=== PATIENT | female | born 1990 | race African-American/Black ===

== ENCOUNTER 2018-04-02 10:42 | Inpatient (IN) ==
[2018-04-01 11:31] LABS: Apearance,Urine Slightly Hazy (Clear); Bacteria,Urine Occasional /HPF (Few); Bilirubin,Urine Negative (Negative); Blood, Urine Negative (Negative); Glucose,Urine (UA) Negative (Negative); Ketones,Urine 80 mg/dL (Negative); Mucus,Urine Many /LPF (Occasional); Nitrite,Urine Negative (Negative); Protein,Urine 30 MG/DL; RBC,Urine 3 /HPF (0-4); Squamous Epithelial Cell,Urine Few /HPF (0-10); Urine Color Yellow (Yellow); Urine Specific Gravity 1.028 (1.001-1.035); Urine Urobilinogen < 2.0 EU/DL (0.2-1.0); WBC,Urine 1 /HPF (0-6)
[2018-04-01] MEDS: LACTATED RINGERS 1,000 ML IV SCH ×2 (11:39→21:03)
[2018-04-01] MEDS: ONDANSETRON 4 MG/2 ML VIAL IV SCH ×3 (11:39→23:29)
[2018-04-01 12:18] LABS: Hematocrit 36.3 VOL% (35.7-47.0); Mean Corpuscular HGB Conc 33.1 GM/DL (32-36); Mean Corpuscular Hemoglobin 24 PG (27-34); Mean Corpuscular Volume 71.3 FL (87-102); Red Blood Count 5.09 MC/CUMM (3.8-5.5); White Blood Count 11.8 T/CUMM (4-12)
[2018-04-01 12:19] LABS: Basophils # 0.1 10*3/uL (0.0-0.2); Basophils % 0.8 % (0.0-0.8); Eosinophils % 0.1 % (0.00-10.9); Immature Granulocytes % 0.3 %; Immature Granulocytes Absolute 0.03 #; Lymphocytes # 2.1 10*3/uL (1.4-4.0); Lymphocytes % 17.4 % (21.3-54.2); Mean Platelet Volume 10.7 FL (9.6-12.0); Monocytes # 0.6 10*3/uL (0.11-0.8); Monocytes % 5.2 % (1.7-12.7); Neutrophils % 76.2 % (38.7-73.9); Platelet Count 292 T/CUMM (130-400); Red Cell Distribution Width 16.6 % (9.3-17.3)
[2018-04-01 12:41] LABS: Albumin 3.8 G/DL (3.4-5.0); Bilirubin,Total 0.8 MG/DL (0.2-1.0); Calcium 9.1 MG/DL (8.5-10.1); Total Protein 7.9 G/DL (6.4-8.3)
[2018-04-01 12:42] LABS: Osmolality,Calculated 259.5 MOS/KG (273-304); Potassium 3.2 MMOL/L (3.5-5.1)
[2018-04-01] MEDS: POTASSIUM CHLORIDE RIDER 10 MEQ in PREMIX 1 EACH IV SCH ×4 (15:12→19:00)
[2018-04-01] MEDS: POTASSIUM CHLORIDE RIDER 10 MEQ in PREMIX 1 EACH IV PRN ×3 (16:09→18:59)
[2018-04-02] MEDS: LACTATED RINGERS 1,000 ML IV SCH (05:30)
[2018-04-02] MEDS: ONDANSETRON 4 MG/2 ML VIAL IV SCH ×2 (05:31→11:16)
[~2018-04-02 10:42] MED LIST: THIAMINE INJ 100 MG, FOLIC ACID INJ 1 MG, MULTIVITAMIN INJ 10 ML in SODIUM CHLORIDE 0.9... IV SCH
[2018-04-02 11:31] VITALS: BP 88/51
[2018-04-02] MEDS ORDERED: METOCLOPRAMIDE 10 MG TABLET PO PRN (13:04)
== END 2018-04-02 13:30 | disposition home or self-care (01) | DRG 566 ==
LOC: N.OB
PROVIDERS: ADMIT Nurse Practitioner; ATTEND Obstetrics & Gynecology